=== PATIENT | male | born 1945 | race Caucasian/White ===

== ENCOUNTER → 2016-10-23 | Outpatient (CLI) | payer OTHER ==
--- NOTE | 2016-10-23 17:24 | DX ---
PA and lateral chest History: Cough. Comparison: PA and lateral chest August 11, 2015. Findings: The lungs are hyperexpanded . There is no pneumothorax or pleural effusion. The heart and p ulmonary vasculature are normal. The bones are stable including degenerative change in the spine and mild anterior height reduction at approximately T4. Impression: Stable chest with hyperexpansion suggesting COPD.
== END ==
LOC: BRMIMAGING 09:56
PROVIDERS: ATTEND Physician Assistant Medical
DX: R05 Cough (principal)
CPT/HCPCS: 71020-PO

== ENCOUNTER → 2018-08-14 | Outpatient (CLI) | payer OTHER | LOC: BRMIMAGING 16:01 | PROVIDERS: ATTEND Physician Assistant Medical | DX: J44.9 Chronic obstructive pulmonary disease, unspecified (principal) | CPT/HCPCS: 71046-PO ==